=== PATIENT | male | born 1960 | race Caucasian/White ===

== ENCOUNTER → 2023-07-17 | Emergency (ER) | payer OTHER ==
[~2023-07-17] MED LIST: ETOMIDATE 20 MG/10 ML VIAL IV ONE; FENTANYL CITR 100 MCG/2 ML ONE; HALOPERIDOL LACT 5 MG/ML INJ ONE; HYDROMORPHONE HCL 1 MG/ML INJ ONE; HYDROMORPHONE HCL 2 MG/ML inj ONE; KETAMINE HCL IN 0.9 % NACL 50 MG/5 ML SYRINGE IV ONE; METOCLOPRAMIDE 10 MG/2mL INJ ONE; MIDAZOLAM HCL 5 ML ONE; ONDANSETRON 4 MG/2 ML VIAL ONE
[2023-07-17 18:42] LABS: Eosinophils % 0.2 % (0-4.4); Hematocrit 39.3 % (39.6-49.0); Hemoglobin 13.6 g/dL (13.6-17.9); Lymphocytes % 7.4 % (15.3-44.8); MCH 32.8 pg (27.0-35.0); MCHC 34.6 g/dL (32.0-36.0); MPV 7.4 fL (7.6-11.3); Monocytes % 4.2 % (3.3-12.3); Neutrophils % 87.8 % (41.7-73.7); Platelets 276 thou/uL (152-406); RBC Red Blood Cell Count 4.14 M/uL (4.33-5.43); Red Cell Distribution Width 12.4 % (12.1-15.2)
[2023-07-17 18:43] LABS: Absolute Basophils 0.1 K/uL (0-0.5); Absolute Lymphocytes (CBC) 1.6 K/uL (0.7-4.9); Absolute Monocytes 0.9 K/uL (0.1-1.3); Basophils % 0.4 % (0-1.3); Nucleated Red Blood Cells % 0.1 % (0-0)
[2023-07-17 19:00] LABS: Albumin 3.4 g/dL (3.4-5.0); Anion Gap 12.6 mEq/L (5.0-15.0); Bilirubin Direct 0.2 mg/dL (0-0.2); Bilirubin Indirect, Calculated 0.3 mg/dL (0.2-0.8); Bilirubin Total 0.5 mg/dL (0.2-1.0); Globulin 3.4 g/dL (2.3-3.5); Potassium 3.6 mEq/L (3.5-5.1); Protein, Total 6.8 g/dL (6.4-8.2)
[2023-07-17 19:17] LABS: Band Neutrophils 2 % (0-1); Differential Total Cells Count 100; Lymphocytes 7 % (15-42); Monocytes 8 % (0-10); Platelet Estimate ADEQ; Segmented Neutrophils 83 % (40-80); Smudge Cells PRESENT
[2023-07-17 19:18] LABS: Blood Morphology Comment NOT SEEN (NOT SEEN)
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
--- NOTE | 2023-07-17 20:20 | RAD REPORT ---
EXAM DESCRIPTION: Wes Single View07/17/2023 5:59 pm CLINICAL HISTORY: Chest pain COMPARISON: none FINDINGS: Mild right basilar atelectasis The heart is mildly enlarged Multiple right rib fractures. Patient's known small right pneumothorax not clearly seen on this exam. Small right pleural effusion Moderately displaced comminuted right midclavicular fracture
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
[2023-07-18 01:25] VITALS: BP 123/79; TEMP 98; O2SAT 96
--- NOTE | 2023-07-18 07:01 | RAD REPORT ---
EXAM DESCRIPTION: RAD - Chest Single View - 07/17/2023 10:38 pm CLINICAL HISTORY: after Right chest tube COMPARISON: Chest Single View dated 07/17/2023; Head C Spine Cap W Con dated 07/17/2023 FINDINGS: Interval placement of a right-sided chest tube. The tip of the tube probably extends along the posterior right lung and terminates overlying the medial lung base. No appreciable pneumothorax identified. New right mid lung opacity along the course of the chest tube. IMPRESSION: Right-sided chest tube placement. New right mid lung opacity along the course of the [address] tube could be postprocedural. No appreciable pneumothorax.
--- NOTE | 2023-07-18 14:24 | EKG ---
Test Date: 2023-07-17 Test Time: 19:00:44 Diesel Truck Mechanic: Gregory MEASUREMENT RESULTS: Intervals: Rate: 75 NV: 132 QRSD: 76 QT: 394 QTc: 439 [place]: P: 40 NV: 132 QRS: 49 T: 36 INTERPRETIVE STATEMENTS: Normal sinus rhythm Cannot rule out Anterior infarct, age undetermined Abnormal ECG No previous ECG available for comparison Electronically Signed On 07-18-23 14:22:53 CDT by Daniel Gonzalez
== END ==
LOC: ER 17:38
PROC: 0W9930Z Drainage of Right Pleural Cavity with Drainage Device, Percutaneous Approach (ICD-10-PCS; principal; 2023-07-17)
DX: S22.41XA Multiple fractures of ribs, right side, initial encounter for closed fracture (principal); S42.021A Displaced fracture of shaft of right clavicle, initial encounter for closed fracture; S27.2XXA Traumatic hemopneumothorax, initial encounter; S27.321A Contusion of lung, unilateral, initial encounter; S20.211A Contusion of right front wall of thorax, initial encounter; V29.408A Other motorcycle driver injured in collision with unspecified motor vehicles in traffic accident, initial encounter
CPT/HCPCS: 85025; 80048; 36415; 86900; 86850; 86901; 80076; 83690; 70450; 72125; 71260; 74177; 71045 ×2; 82077; 32551; Q9967; J2250 ×2; J1630; J2765; J1170 ×2; J3010 ×2; J2405 ×3; 93005